=== PATIENT | male | born 1965 | race Two or more races ===

== ENCOUNTER 2024-12-20 08:58 | Outpatient (CLI) | payer MEDICAID ==
--- NOTE | 2024-12-20 18:47 | CARDIOLOGY REPORT ---
APPROVED REPORT EXAM: Comprehensive 2D, Doppler, and color-flow Echocardiogram. Patient Location: OUT-PATIENT Blood Pressure: 133/76 mmHg Heart Rate: 86 bpm Rhythm: SINUS Indications HYPERTENSION Senior Environmental Consultant: none Previous echo: none 2D Dimensions RVDd 3.9 cm IVSd 1.2 (0.7-1.1cm) LVDd 4.2 cm PWd 1.2 (0.7-1.1cm) IVSs 1.5 (0.8-1.2cm) LVDs 2.6 (2.5-4.0cm) PWs 1.8 (0.8-1.2cm) LVOT Diameter 2.17 (1.8-2.4cm) LVEF(%) 68.7 (>50%) Ao Asc Diam. 3.36 cm LA Volume 32 (18-58mL) FS (%) 38.0 % SV 52.8 ml M-Mode Dimensions Left Atrium(MM) 3.72 (2.5-4.0cm) Aortic Root 3.46 (2.2-3.7cm) Aortic Cusp Exc 1.96 (1.5-2.0cm) Biplane 2D LA Volumes LA ESV A2C 30.40 mL/m2 LA ESV A4C 31.54 mL/m2 Aortic Valve AoV Peak Blair. 197.8 cm/s AoV VTI 34.8 cm AO Peak GR. 15.7 mmHg AO Mean GR. 9 mmHg LVOT VTI 27.94 cm LVOT Peak Blair. 145.9 cm/s DANIA (VMAX) 2.72 cm2 DANIA (VTI) 2.97 cm2 Mitral Valve MV E Velocity 88.6 cm/s MV DECEL TIME 185 ms MV A Velocity 72.6 cm/s MV PHT 54 ms E/A Ratio 1.2 MVA (PHT) 4.05 cm2 TDI E/Medial E' 9.8 Tricuspid Valve TR P. Velocity 315 cm/s RAP ESTIMATE 10 mmHg TR Peak Gr. 40 mmHg RVSP 50 mmHg Pulmonary Vein S2 Velocity 43.31 cm/s PVa Duration 80 msec LEFT VENTRICLE Normal LV size and function. Mild concentric hypertrophy. LVEF is 65-70%. RIGHT VENTRICLE RV is mildly dilated in size with normal function. RVSP is estimated at 50 mmHg. ATRIA LA size is normal. AORTIC VALVE Trileaflet AV appears mildly sclerotic without stenosis or insufficiency. MITRAL VALVE Mild MV annular calcification without stenosis. Trace regurgitation. TRICUSPID VALVE TV appears structurally normal with mild regurgitation. PULMONIC VALVE Normal PV without stenosis, physiologic insufficiency. GREAT VESSELS Aortic root is normal in size. Ascending aorta is normal in size. The IVC is normal in size and collapses greater than 50% with inspiration. PERICARDIUM Normal pericardium. No effusion. Other Information Study Quality: Adequate Conclusion Normal LV size and function. Mild concentric hypertrophy. LVEF is 65-70%. RV is mildly dilated in size with normal function. RVSP is estimated at 50 mmHg. LA size is normal. Trileaflet AV appears mildly sclerotic without stenosis or insufficiency. Mild MV annular calcification without stenosis. Trace regurgitation. TV appears structurally normal with mild regurgitation. Normal pericardium. No effusion.
== END 2024-12-20 23:59 | disposition home or self-care (01) ==
LOC: CARD DIAG 08:58
PROVIDERS: ATTEND Physician Assistant
DX: I08.8 Other rheumatic multiple valve diseases (principal); I47.19 Other supraventricular tachycardia; I10 Essential (primary) hypertension
CPT/HCPCS: 93306